=== PATIENT | male | born 1965 | race Caucasian/White ===

== ENCOUNTER → 2020-03-15 | Outpatient (CLI) | payer OTHER | LOC: CAT 11:43 | PROVIDERS: ATTEND Internal Medicine Cardiovascular Disease | DX: Z13.6 Encounter for screening for cardiovascular disorders (principal); I25.10 Atherosclerotic heart disease of native coronary artery without angina pectoris; E78.00 Pure hypercholesterolemia, unspecified ==

== ENCOUNTER → 2020-03-15 | Outpatient (CLI) | payer OTHER | LOC: SJCVCIMAG 08:04 | PROVIDERS: ATTEND Internal Medicine Cardiovascular Disease | DX: I08.3 Combined rheumatic disorders of mitral, aortic and tricuspid valves (principal); I77.810 Thoracic aortic ectasia; R94.31 Abnormal electrocardiogram [ECG] [EKG] ==